=== PATIENT | male | born 1945 | race African-American/Black ===

== ENCOUNTER 2017-06-04 16:56 | Inpatient (IN) | payer MEDICARE, OTHER ==
[~2017-06-04] VITALS: Ht 172.7 cm; Wt 69.4 kg
[~2017-06-04 16:56] MED LIST: FLUT16SP15 BOTHNSTRLS; LORA10TA7 PO; METF500T4 PO; OMEP20CA10 PO; SIMV80TA70 PO; TRAZ-129 PO; UREA198C TP; ZIPR20CA12 PO
[2017-06-04] MEDS ORDERED: SODIUM CHLORIDE 0.9% 1,000 ML IV ONE (18:56)
[2017-06-04] MEDS ORDERED: ONDANSETRON 4MG ODT PO STA (18:56)
[2017-06-04 20:03] LABS: INR 1.2; PROTHROMBIN TIME 12.7 sec (9.4-11.6)
[2017-06-04 20:04] LABS: CHLORIDE 105 mEq/L (98-107)
[2017-06-04 20:09] LABS: CARBON DIOXIDE 19 mEq/L (21-32)
[2017-06-04 20:13] LABS: BASOPHILS % 0.5 % (0.0-2.0); EOSINOPHILS % 0.4 % (0.0-5.0); HEMATOCRIT. 35.5 % (42.0-52.0); HEMOGLOBIN. 11.6 g/dL (14.0-18.0); LYMPHOCYTES % 8.2 % (20.0-50.0); MEAN CORPUSCULAR HEMOGLOBIN 25.4 pg (28.0-32.0); MEAN CORPUSCULAR VOLUME 77.6 fL (80.0-94.0); MONOCYTES % 5.7 % (2.0-8.0); NEUTROPHILS % 85.2 % (40.0-76.0); PLATELET 582 x1000/uL (130-400); RED BLOOD CELL COUNT 4.57 mill/uL (4.7-6.1)
[2017-06-04 20:15] LABS: ETHANOL BLOOD < 10 mg/dL
[2017-06-04 20:17] LABS: TROPONIN I < 0.02 ng/mL (0.00-0.04)
[2017-06-04] MEDS ORDERED: ASPIRIN 325MG TABLET PO NR (20:30)
[2017-06-04] MEDS ORDERED: DEXTROSE 50% WATER 50ML SYRINGE IV PRN (21:45)
[2017-06-04] MEDS ORDERED: NITROGLYCERIN 0.4MG TABLET SL SL PRN (21:45)
[2017-06-04] MEDS ORDERED: MAGNESIUM/ALUMINUM HYDROXIDE/SIMETHICONE 30ML UDC PO PRN (21:45)
[2017-06-04] MEDS ORDERED: NA PHOS,M-B/NA PHOS,DI-BA ENEMA 118ML PR PRN (21:45)
[2017-06-04] MEDS ORDERED: LORAZEPAM 2MG/ML CPJ IV PRN (21:45)
[2017-06-04] MEDS ORDERED: DOCUSATE SODIUM 100MG CAPSULE PO PRN (21:45)
[2017-06-04] MEDS ORDERED: GUAIFENESIN 200MG/10ML SUGAR FREE UDC PO PRN (21:45)
[2017-06-04] MEDS ORDERED: CLONIDINE 0.1MG TABLET PO PRN (21:45)
[2017-06-04] MEDS ORDERED: ACETAMINOPHEN 325MG TABLET PO PRN (21:45)
[2017-06-04] MEDS ORDERED: DIPHENHYDRAMINE 50MG/ML VIAL IV PRN (21:45)
[2017-06-04] MEDS ORDERED: IPRATROPIUM/ALBUTEROL 0.5-3(2.5)MG/3ML NEB INH PRN (21:45)
[2017-06-04] MEDS ORDERED: ONDANSETRON HCL 4MG/2ML VIAL IV PRN (21:45)
[2017-06-04 22:07] LABS: T4 FREE 1.48 ng/dL (0.76-1.46)
[2017-06-04 23:08] LABS: VITAMIN B12 SERUM > 2000.0 pg/mL (211-911)
[2017-06-04 23:30] VITALS: BP 118/59
[2017-06-04] MEDS ORDERED: ZOLPIDEM TARTRATE 5MG TABLET PO PRN (23:30)
[2017-06-04 23:38] LABS: CLARITY URINE TURBID (CLEAR); COLOR URINE ORANGE (YELLOW); KETONES URINE 2+ (NEGATIVE); LEUKOCYTE ESTERASE URINE 2+ (NEGATIVE); NITRITE URINE NEGATIVE (NEGATIVE); OCCULT BLOOD URINE 3+ (NEGATIVE); PROTEIN URINE 2+ (NEGATIVE); SPECIFIC GRAVITY URINE 1.019 (1.005-1.030)
[2017-06-04 23:52] LABS: *AMPHETAMINES SCREEN URINE NEGATIVE (NEGATIVE); *BARBITURATES SCREEN URINE NEGATIVE (NEGATIVE); *BENZODIAZEPINES SCREEN URINE NEGATIVE (NEGATIVE); *COCAINE SCREEN URINE NEGATIVE (NEGATIVE); CANNABINOID URINE SCREEN NEGATIVE (NEGATIVE); METHADONE URINE SCREEN NEGATIVE (NEGATIVE); OPIATES URINE SCREEN PRESUMTIVE POSITIVE (NEGATIVE); PHENCYCLIDINE URINE SCREEN NEGATIVE (NEGATIVE)
[2017-06-05] MEDS: SODIUM CHLORIDE 0.9% 1,000 ML IV SCH ×2 (00:30→16:36)
[2017-06-05 02:31] LABS: CREATINE KINASE 93 IU/L (39-308); CREATINE KINASE MB FRACTION 1.6 ng/mL (0.5-3.6); TROPONIN I < 0.02 ng/mL (0.00-0.04)
[2017-06-05 04:00] VITALS: BP 126/62
[2017-06-05] MEDS: TRAMADOL 50MG TABLET PO PRN ×3 (04:22→17:08)
[2017-06-05] MEDS: BLOOD SUGAR DIAGNOSTIC STRIP TEST SCH ×4 (06:06→21:30)
[2017-06-05] MEDS: SUCRALFATE 1 G/10 ML UDC PO SCH ×5 (06:57→22:14)
[2017-06-05 08:00] VITALS: BP 115/72
[2017-06-05] MEDS: INSULIN LISPRO 100 UNITS/ML SUBCUT SCH ×4 (08:10→22:12)
[2017-06-05] MEDS: ENOXAPARIN 40MG/0.4ML SYR SUBCUT SCH (09:00)
[2017-06-05] MEDS: FAMOTIDINE 20MG/2ML VIAL IV SCH ×2 (09:21→21:31)
[2017-06-05 10:33] LABS: CREATINE KINASE 102 IU/L (39-308); TROPONIN I < 0.02 ng/mL (0.00-0.04)
[2017-06-05 12:00] VITALS: BP 104/59
[2017-06-05 15:47] VITALS: BP 121/64
[2017-06-05 20:00] VITALS: BP 120/68
[2017-06-06] VITALS: BP 109/55
[2017-06-06 04:00] VITALS: BP 120/68
[2017-06-06] MEDS: TRAMADOL 50MG TABLET PO PRN (05:24)
[2017-06-06] MEDS: SODIUM CHLORIDE 0.9% 1,000 ML IV SCH (05:28)
[2017-06-06] MEDS: BLOOD SUGAR DIAGNOSTIC STRIP TEST SCH (05:56)
[2017-06-06 08:00] VITALS: BP 148/94
[2017-06-06] MEDS: INSULIN LISPRO 100 UNITS/ML SUBCUT SCH (08:10)
[2017-06-06] MEDS: SUCRALFATE 1 G/10 ML UDC PO SCH (08:23)
[2017-06-06] MEDS: FAMOTIDINE 20MG/2ML VIAL IV SCH (08:23)
[2017-06-06] MEDS: ENOXAPARIN 40MG/0.4ML SYR SUBCUT SCH (09:00)
[2017-06-06 10:43] VITALS: BP 117/63
[2017-06-06 11:40] VITALS: BP 117/63
== END 2017-06-06 11:40 | disposition home or self-care (01) | DRG 73 ==
LOC: ER 17:29 → 7WST 20:34 → UNDOADMIN 20:34 → 6WST 20:34 → EDBEDREQ 20:38 → EDBEDREQTM 20:38 → ENRESERV 21:34
PROVIDERS: ADMIT Internal Medicine; ATTEND Internal Medicine
DX: G90.8 Other disorders of autonomic nervous system (principal); G93.41 Metabolic encephalopathy; E44.0 Moderate protein-calorie malnutrition; D64.9 Anemia, unspecified; E11.9 Type 2 diabetes mellitus without complications; F41.9 Anxiety disorder, unspecified; I10 Essential (primary) hypertension; Z68.23 Body mass index [BMI] 23.0-23.9, adult; Z79.84 Long term (current) use of oral hypoglycemic drugs; Z79.899 Other long term (current) drug therapy; Z85.46 Personal history of malignant neoplasm of prostate; Z88.0 Allergy status to penicillin; Z87.11 Personal history of peptic ulcer disease
CPT/HCPCS: 36415; 70450; 71010; 80053; 80061; 80305; 81001; 82550; 82553; 82607; 82746; 82962; 83036; 83540; 83550; 83880; 84439; 84443; 84484; 85025; 85610; 87086; 93005; 93970; 96360; 96361; 99285; G0482; J1650; J1815; J3490; J7030; Q0162